=== PATIENT | female | born 1960 | race Caucasian/White ===

== ENCOUNTER 2016-11-29 12:49 | Outpatient (CLI) | payer MEDICARE, MEDICAID ==
[~2016-11-29] VITALS: Ht 157.5 cm; Wt 74.4 kg
[~2016-11-29 12:49] MED LIST: ALBU17AE3 IH; AMIT75TA2 PO; BECL8.7A5 IH; CYCL10TA9 PO; DCS100C PO; DESV50TA PO; ESTR0.5T PO; HYDR-3454 PO; Hydrocodone Bit/Acetaminophen PO; IBUP-1773 PO; LISD70CA3 PO; LISI1TAB10 PO; LISI40TA PO; LVT.088T PO; METH750T3 PO; NAPR-243 PO; NF-ESOM40C PO; PNT40TEC PO; POTA20PI PO; POTA20TA15 PO; SUCR1TAB PO; VILA20TA PO; VILA40TA PO; [UNRECOGNIZED DRUG - OTHER]; flovent
--- OUTSIDE RECORDS SUMMARY | 2016-11-29 12:52 | XMS REPORT | Continuity of Care Document ---
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 If you do not see the information that you expected, contact Release of Information in the Health Information Management department at [phone] for further assistance in locating additional records.[facility] Active Allergies and Adverse Reactions Not on File Current Medications Not on file Active Problems Not on file Social History Tobacco Use Types Packs/Day Years Used Date Never Assessed Plan of Care Health Maintenance Due Date Last Done Comments Physical (Comprehensive) 1966 Exam Pertussis Vaccine 1970 Tetanus Vaccine 1976 Cervical Cancer Screening 1980 Breast Cancer Screening 1999 Colorectal Cancer 2009 Screening Influenza Vaccine 07/08/2016 Results from Last 3 Months Not on file
[2016-11-29] MEDS ORDERED: LIDOCAINE 1% INJ 20 ML (XYLOCAINE) VIAL ONE (12:53)
[2016-11-29] MEDS ORDERED: TRIAMCINOLONE ACET (KENALOG-40) 40 MG/ML 1 ML VIAL ONE (12:53)
[2016-11-29] MEDS ORDERED: BUPIVACAINE 0.25% 30 ML (SENSORCAINE) VIAL ONE (12:53)
[2016-11-29 13:09] VITALS: BP 146/86
[2016-11-29 13:36] VITALS: BP 147/88
--- NOTE | 2016-11-29 14:39 | Pain Medicine-Procedure ---
Procedure Pre-Op/Post-Op Diagnosis Diagnosis: disc disorder with radiculopathy, lumbar Indications for Operation Low back and hip pain Attending Surgeon Duran Procedure Date of Service: Nov 29, 2016 Procedure: Lumbar Epidural Steroid Injection at the L5/S1 Level under Fluoroscopic Guidance and right sacroiliac joint injection Procedure: Patient was identified in the holding area. After risks, benefits, and alternatives were discussed with the patient, informed consent was obtained. Patient was brought to the fluoroscopy suite and placed prone on the procedure room table. A time out was performed. Vital signs were monitored throughout the procedure. The patients low back was prepped and draped in the usual sterile fashion. The patients skin was anesthetized using 2% Lidocaine. A Tuohy needle was inserted and advanced to the L5-S1 epidural space under fluoroscopic guidance using the loss of resistance technique and intermittent projection of fluoroscopy. There was no paresthesia with needle placement. The needle position was confirmed in both the AP and lateral view. After negative aspiration 2ml of non-ionic contrast was injected under live fluoroscopy which showed good spread of the contrast in the epidural space at the appropriate level, there was no intravascular or subarachnoid spread. Again, after negative aspiration for heme or CSF, 2 ml of 0.25% Bupivicaine, 2ml of preservative free normal saline, and 80mg of Kenalog was injected. The needle was removed and a sterile bandage was placed. Attention was then directed to the right sacroiliac joint which was identified under fluoroscopic guidance. The skin overlying the posterior inferior one third of the sacroiliac joint was anesthetized with 1 percent lidocaine and a 22 -gauge 3-1/2 inch needle was inserted and advanced into the joint. Following negative aspiration a total of 40 mg of Kenalog and 2 mL of 0.25 percent bupivacaine was injected. Needle was flushed with lidocaine and removed. Sterile bandage was applied. Patient tolerated the procedures well with no apparent complications. Complications None JUDITH AVENDAÑO MD Nov 29, 2016 2:39 pm
== END 2016-11-29 13:37 | disposition home or self-care (01) ==
LOC: CARD 12:49
PROVIDERS: ATTEND Pain Medicine Pain Medicine
DX: M53.3 Sacrococcygeal disorders, not elsewhere classified (principal); M51.16 Intervertebral disc disorders with radiculopathy, lumbar region; Z79.899 Other long term (current) drug therapy
CPT/HCPCS: 27096; 62323

== ENCOUNTER 2017-03-18 10:18 | Outpatient (CLI) | payer MEDICARE, MEDICAID ==
[~2017-03-18] VITALS: Ht 157.5 cm; Wt 77.1 kg
[2017-03-18] MEDS ORDERED: TRIAMCINOLONE ACET (KENALOG-40) 40 MG/ML 1 ML VIAL ONE (11:13)
[2017-03-18] MEDS ORDERED: BUPIVACAINE 0.25% 30 ML (SENSORCAINE) VIAL ONE (11:14)
[2017-03-18 11:23] VITALS: BP 152/87
[2017-03-18 12:04] VITALS: BP 154/79
--- NOTE | 2017-03-18 13:10 | Pain Medicine-Procedure ---
Procedure Pre-Op/Post-Op Diagnosis Diagnosis: disc disorder with radiculopathy, lumbar Indications for Operation Low back and hip pain Attending Surgeon Duran Procedure Date of Service: March 18, 2017 Procedure: Lumbar Epidural Steroid Injection at the L5/S1 Level under Fluoroscopic Guidance and right sacroiliac joint injection Procedure: Patient was identified in the holding area. After risks, benefits, and alternatives were discussed with the patient, informed consent was obtained. Patient was brought to the fluoroscopy suite and placed prone on the procedure room table. A time out was performed. Vital signs were monitored throughout the procedure. The patients low back was prepped and draped in the usual sterile fashion. The patients skin was anesthetized using 2% Lidocaine. A Tuohy needle was inserted and advanced to the L5-S1 epidural space under fluoroscopic guidance using the loss of resistance technique and intermittent projection of fluoroscopy. There was no paresthesia with needle placement. The needle position was confirmed in both the AP and lateral view. After negative aspiration 2ml of non-ionic contrast was injected under live fluoroscopy which showed good spread of the contrast in the epidural space at the appropriate level, there was no intravascular or subarachnoid spread. Again, after negative aspiration for heme or CSF, 2 ml of 0.25% Bupivicaine, 2ml of preservative free normal saline, and 80mg of Kenalog was injected. The needle was removed and a sterile bandage was placed. Attention was then directed to the right sacroiliac joint which was identified under fluoroscopic guidance. The skin overlying the posterior inferior one third of the sacroiliac joint was anesthetized with 1 percent lidocaine and a 22 -gauge 3-1/2 inch needle was inserted and advanced into the joint. Following negative aspiration a total of 40 mg of Kenalog and 2 mL of 0.25 percent bupivacaine was injected. Needle was flushed with lidocaine and removed. Sterile bandage was applied. Patient tolerated the procedures well with no apparent complications. Complications None JUDITH AVENDAÑO MD March 18, 2017 1:09 pm
== END 2017-03-18 12:06 | disposition home or self-care (01) ==
LOC: CARD 10:18
PROVIDERS: ATTEND Pain Medicine Pain Medicine
DX: M53.3 Sacrococcygeal disorders, not elsewhere classified (principal); M51.16 Intervertebral disc disorders with radiculopathy, lumbar region
CPT/HCPCS: 27096; 62323

== ENCOUNTER → 2017-07-08 | Outpatient (CLI) | payer MEDICARE, MEDICAID ==
--- NOTE | 2017-07-08 13:32 | Diagnostic Imaging Report ---
CLINICAL INDICATION: Patient fell on June 20. Patient has right-sided head pain. EXAM: Axial CT scan of brain performed without IV contrast. COMPARISON: None. FINDINGS: There is no evidence of acute cerebral infarct, intracranial hemorrhage, or gross mass effect. There is normal whaley-white matter distinction. The brain parenchymal volume appears appropriate for patient's age. There is no significant midline shift or herniation. There is a prominent perivascular space in left basal ganglia region. There is no evidence of hydrocephalus. The basal cisterns are unremarkable. The skull, extracranial soft tissue, and orbits are unremarkable. The paranasal sinuses are unremarkable. IMPRESSION: Unremarkable CT scan of the brain. Dictated by: Dictated on workstation # [id number]
== END ==
LOC: RAD 12:29
PROVIDERS: ATTEND Nurse Practitioner Family
DX: R42 Dizziness and giddiness (principal)
CPT/HCPCS: 70450

== ENCOUNTER → 2017-09-01 | Outpatient (CLI) | payer MEDICARE, MEDICAID ==
--- NOTE | 2017-09-01 13:19 | Diagnostic Imaging Report ---
EXAMINATION: DEXA scan. INDICATION: Osteopenia. TECHNIQUE: Bone mineral density estimated based on dual energy radiography over the lumbar spine and femoral necks, was performed. FINDINGS: The lumbar spine T-score is -1. T score over the left femoral neck is 0 and on the right side is -0.5. IMPRESSION: Osteopenia. Dictated by: Dictated on workstation # [id number]
== END ==
LOC: RAD 09:59
PROVIDERS: ATTEND Physician Assistant
DX: M81.0 Age-related osteoporosis without current pathological fracture (principal)
CPT/HCPCS: 77080

== ENCOUNTER → 2017-09-20 | Outpatient (CLI) | payer MEDICARE, MEDICAID ==
[~2017-09-20] MED LIST changes: +GADOBUTROL 7.5 MMOL/7.5 ML (GADAVIST) VIAL IV ONE
--- NOTE | 2017-09-20 14:54 | Diagnostic Imaging Report ---
EXAMINATION: Multiplanar, multisequence MRI of the brain and IACs is performed without and with intravenous contrast. 7 mL of Gadavist is administered intravenously. INDICATION: Dizziness and vertigo. FINDINGS: There is no diffusion restriction to suggest an acute infarct or other diffusion abnormality. There is no significant stafford or white matter signal abnormality. CSF intensity foci in the basal ganglia are likely related to perivascular spaces. Normal findings. There is no hydrocephalus. No extra-axial fluid collection seen. The pituitary gland is normal in size. No hypothalamic or pineal region mass. Thin section images through the IAC demonstrate no CP angle mass. The IACs are symmetric with symmetric appearance of the inner ear structures. The central vascular flow-voids appear grossly unremarkable. Post contrast images demonstrate no enhancing lesion. IMPRESSION: Unremarkable exam. Dictated by: Dictated on workstation # [id number]
== END ==
LOC: RAD 10:03
PROVIDERS: ATTEND Family Medicine
DX: H81.391 Other peripheral vertigo, right ear (principal)
CPT/HCPCS: 70553

== ENCOUNTER 2017-09-27 10:53 | Outpatient (RCR) | payer MEDICARE, MEDICAID ==
[~2017-09-27 10:53] MED LIST changes: -GADOBUTROL 7.5 MMOL/7.5 ML (GADAVIST) VIAL IV ONE
== END 2017-09-27 11:57 | disposition home or self-care (01) ==
PROVIDERS: ATTEND Obstetrics & Gynecology
DX: M62.89 Other specified disorders of muscle (principal); M79.1 Myalgia

== ENCOUNTER 2017-11-16 10:36 | Outpatient (RCR) | payer MEDICARE, MEDICAID | END 2017-11-18 15:26 | disposition home or self-care (01) | PROVIDERS: ATTEND Physician Assistant | DX: R42 Dizziness and giddiness (principal); R26.81 Unsteadiness on feet ==

== ENCOUNTER 2017-12-06 14:36 | Outpatient (RCR) | payer MEDICARE, MEDICAID | END 2017-12-06 15:29 | disposition home or self-care (01) | PROVIDERS: ATTEND Physician Assistant Medical | DX: M25.562 Pain in left knee (principal) ==

== ENCOUNTER → 2017-12-22 | Outpatient (CLI) | payer MEDICAID, MEDICARE ==
--- NOTE | 2017-12-22 12:51 | Diagnostic Imaging Report ---
INDICATION: Routine screening. COMPARISON: Comparison is made with prior exam from 10/26/2016 and 08/07/2015. The current study was also evaluated with a Computer Aided Detection (CAD) system. FINDINGS: Both breasts remain heterogeneously dense, limiting the sensitivity of mammography. The parenchymal pattern is stable. No dominant mass or malignant-appearing microcalcifications are seen. There are scattered benign-appearing calcifications bilaterally. The axillae are unremarkable. IMPRESSION: No mammographic features suspicious for malignancy are identified. ACR BI-RADS Category 2: Benign findings. Result letter will be mailed to the patient. Note: At least 10% of breast cancer is not imaged by mammography. Dictated by: Dictated on workstation # [id number]
== END ==
LOC: RAD 09:31
PROVIDERS: ATTEND Family Medicine
DX: Z12.31 Encounter for screening mammogram for malignant neoplasm of breast (principal)
CPT/HCPCS: 77067

== ENCOUNTER → 2018-05-15 | Outpatient (CLI) | payer MEDICARE, MEDICAID ==
[~2018-05-15] MED LIST changes: +BARIUM SUSPENSION 2.1% (VANILLA SILQ) 450 ML PO ONE; +IOHEXOL 350 MG/ML 100 ML (OMNIPAQUE 350) VIAL IV ONE; +NS 250 ML (IVPB) BAG IV ONE
--- NOTE | 2018-05-15 14:00 | Diagnostic Imaging Report ---
PROCEDURE: CT chest, abdomen, and pelvis with contrast. TECHNIQUE: Multiple contiguous axial images were obtained through the chest, abdomen, and pelvis after the administration of intravenous contrast. INDICATION: Lymphocytosis and abdominal pain. Comparison is made with prior CT abdomen and pelvis from 10/29/2014. CT chest: FINDINGS: No axillary lymphadenopathy is detected. No definite hilar or mediastinal lymphadenopathy is detected. No pericardial or pleural fluid is identified. No pulmonary infiltrates, nodules or masses are seen. IMPRESSION: Unremarkable CT of the chest. CT abdomen and pelvis: FINDINGS: The liver demonstrates generalized low density suggestive of hepatic steatosis. No discrete liver mass is identified. The gallbladder is surgically absent. The pancreas and spleen are unremarkable. No adrenal mass is identified. Kidneys are unremarkable. Aorta is nonaneurysmal. No central retroperitoneal or mesenteric lymphadenopathy is seen. Small and large bowel loops are normal caliber. No obstruction is seen. There is no ascites. No inflammatory process is identified. The bladder is decompressed. Moderate stool in the rectum and sigmoid is seen. IMPRESSION: 1. Hepatic steatosis. 2. No acute feature in the abdomen or pelvis is identified. Dictated by: Dictated on workstation # [id number]
== END ==
LOC: RAD 12:43
PROVIDERS: ATTEND Internal Medicine Hematology & Oncology
DX: K76.0 Fatty (change of) liver, not elsewhere classified (principal); D72.820 Lymphocytosis (symptomatic)
CPT/HCPCS: 71260; 74177

== ENCOUNTER 2018-11-01 12:47 | Outpatient (RCR) | payer MEDICARE, MEDICAID ==
[~2018-11-01 12:47] MED LIST changes: -BARIUM SUSPENSION 2.1% (VANILLA SILQ) 450 ML PO ONE; -IOHEXOL 350 MG/ML 100 ML (OMNIPAQUE 350) VIAL IV ONE; -NS 250 ML (IVPB) BAG IV ONE
== END 2018-11-06 16:22 | disposition home or self-care (01) ==
PROVIDERS: ATTEND Family Medicine
DX: M75.51 Bursitis of right shoulder (principal)

== ENCOUNTER 2018-12-04 12:17 | Outpatient (RCR) | payer MEDICARE, MEDICAID ==
[2018-12-04 13:40] LABS: BASOPHILS # (AUTO) 0.1 10^3/uL (0.0-0.1); BASOPHILS % (AUTO) 1 % (0-10); EOSINOPHILS # (AUTO) 0.3 10^3/uL (0.0-0.3); EOSINOPHILS % (AUTO) 3 % (0-10); HEMATOCRIT 42 % (35-52); HEMOGLOBIN 14.8 G/DL (11.5-16.0); LYMPHOCYTES # (AUTO) 3.4 X 10^3 (1.0-4.0); LYMPHOCYTES % (AUTO) 32 % (12-44); MEAN CORPUSCULAR HEMOGLOBIN 32 PG (25-34); MEAN CORPUSCULAR HGB CONC 35 G/DL (32-36); MEAN CORPUSCULAR VOLUME 90 FL (80-99); MEAN PLATELET VOLUME 10.8 FL (7.4-10.4); MONOCYTES # (AUTO) 0.7 X 10^3 (0.0-1.0); MONOCYTES % (AUTO) 7 % (0-12); NEUTROPHILS % (AUTO) 57 % (42-75); PLATELET COUNT 307 10^3/uL (130-400); RED CELL DISTRIBUTION WIDTH 13.9 % (10.0-14.5); WHITE BLOOD COUNT 10.5 10^3/uL (4.3-11.0)
[2018-12-04 13:55] LABS: ALANINE AMINOTRANSFERASE 17 U/L (0-55); ALBUMIN 3.9 GM/DL (3.2-4.5); ALKALINE PHOSPHATASE 104 U/L (40-136); BILIRUBIN,TOTAL 0.3 MG/DL (0.1-1.0); BUN/CREATININE RATIO 7; CALCIUM 9.4 MG/DL (8.5-10.1); CARBON DIOXIDE 25 MMOL/L (21-32); CHLORIDE 104 MMOL/L (98-107); CREATININE SERUM 0.84 MG/DL (0.60-1.30); GFR ESTIMATED > 60; GLUCOSE 121 MG/DL (70-105); POTASSIUM 2.9 MMOL/L (3.6-5.0); SODIUM 142 MMOL/L (135-145); TOTAL PROTEIN 7.5 GM/DL (6.4-8.2)
== END 2019-03-04 | disposition home or self-care (01) ==
LOC: ONC 12:17
PROVIDERS: ATTEND Internal Medicine Hematology & Oncology
DX: D72.820 Lymphocytosis (symptomatic) (principal); I10 Essential (primary) hypertension; E03.9 Hypothyroidism, unspecified; N28.9 Disorder of kidney and ureter, unspecified; K21.9 Gastro-esophageal reflux disease without esophagitis; K44.9 Diaphragmatic hernia without obstruction or gangrene; K90.0 Celiac disease; M17.0 Bilateral primary osteoarthritis of knee; M47.896 Other spondylosis, lumbar region; Z79.899 Other long term (current) drug therapy
CPT/HCPCS: 80053; 83615; 85025; 99213

== ENCOUNTER 2018-12-08 09:26 | Outpatient (RCR) | payer MEDICARE, MEDICAID | END 2018-12-08 11:08 | disposition home or self-care (01) | PROVIDERS: ATTEND Family Medicine | DX: M75.51 Bursitis of right shoulder (principal) ==

== ENCOUNTER → 2019-01-30 | Outpatient (CLI) | payer MEDICARE, MEDICAID ==
--- NOTE | 2019-01-30 18:02 | Diagnostic Imaging Report ---
INDICATION: Routine screening. Comparison is made with prior mammograms from 12/22/2017 and 10/26/2016. 2-D and 3-D bilateral screening mammography was performed with Computer-Aided Detection (CAD) system. FINDINGS: Both breasts remain heterogeneously dense, limiting the sensitivity of mammography. Benign calcifications are scattered throughout both breasts. No dominant mass or malignant-appearing microcalcifications are seen. Axillae are unremarkable. IMPRESSION: No mammographic features suspicious for malignancy are identified. ACR BI-RADS Category 2: Benign findings. Result letter will be mailed to the patient. Note: At least 10% of breast cancer is not imaged by mammography. Dictated by: Dictated on workstation # [id number]
== END ==
LOC: RAD 12:19
PROVIDERS: ATTEND Family Medicine
DX: Z12.31 Encounter for screening mammogram for malignant neoplasm of breast (principal)
CPT/HCPCS: 77067

== ENCOUNTER → 2019-06-18 | Outpatient (CLI) | payer MEDICARE, MEDICAID ==
[2019-06-18 14:55] LABS: BASOPHILS # (AUTO) 0.1 10^3/uL (0.0-0.1); BASOPHILS % (AUTO) 1 % (0-10); EOSINOPHILS # (AUTO) 0.3 10^3/uL (0.0-0.3); EOSINOPHILS % (AUTO) 3 % (0-10); HEMATOCRIT 40 % (35-52); HEMOGLOBIN 13.9 G/DL (11.5-16.0); LYMPHOCYTES % (AUTO) 38 % (12-44); MEAN CORPUSCULAR HEMOGLOBIN 31 PG (25-34); MEAN CORPUSCULAR HGB CONC 35 G/DL (32-36); MEAN CORPUSCULAR VOLUME 88 FL (80-99); MEAN PLATELET VOLUME 10.8 FL (7.4-10.4); MONOCYTES # (AUTO) 0.8 X 10^3 (0.0-1.0); MONOCYTES % (AUTO) 8 % (0-12); NEUTROPHILS # (AUTO) 5.3 X 10^3 (1.8-7.8); NEUTROPHILS % (AUTO) 51 % (42-75); PLATELET COUNT 241 10^3/uL (130-400); RED CELL DISTRIBUTION WIDTH 14.2 % (10.0-14.5); WHITE BLOOD COUNT 10.4 10^3/uL (4.3-11.0)
[2019-06-18 15:18] LABS: ALANINE AMINOTRANSFERASE 12 U/L (0-55); ALBUMIN 3.8 GM/DL (3.2-4.5); ALKALINE PHOSPHATASE 103 U/L (40-136); BILIRUBIN,TOTAL 0.3 MG/DL (0.1-1.0); BUN/CREATININE RATIO 10; CALCIUM 9.4 MG/DL (8.5-10.1); CARBON DIOXIDE 27 MMOL/L (21-32); CHLORIDE 102 MMOL/L (98-107); CREATININE SERUM 0.92 MG/DL (0.60-1.30); GFR ESTIMATED > 60; GLUCOSE 88 MG/DL (70-105); POTASSIUM 2.9 MMOL/L (3.6-5.0); SODIUM 140 MMOL/L (135-145); TOTAL PROTEIN 7.2 GM/DL (6.4-8.2)
== END ==
LOC: EDSTATUS 03-05 09:00 → ONC 14:29
PROVIDERS: ATTEND Internal Medicine Hematology & Oncology
DX: D72.820 Lymphocytosis (symptomatic) (principal); I10 Essential (primary) hypertension; E03.9 Hypothyroidism, unspecified; N28.9 Disorder of kidney and ureter, unspecified; K21.9 Gastro-esophageal reflux disease without esophagitis; K44.9 Diaphragmatic hernia without obstruction or gangrene; K90.0 Celiac disease; M17.0 Bilateral primary osteoarthritis of knee; M47.896 Other spondylosis, lumbar region; Z79.899 Other long term (current) drug therapy
CPT/HCPCS: 36415; 80053; 83615; 85025; 99213

== ENCOUNTER 2019-12-10 15:20 | Outpatient (RCR) | payer MEDICARE, MEDICAID | END 2019-12-12 | disposition home or self-care (01) | PROVIDERS: ATTEND Nurse Practitioner | DX: M51.16 Intervertebral disc disorders with radiculopathy, lumbar region (principal); M25.562 Pain in left knee ==

== ENCOUNTER 2020-01-10 11:00 | Outpatient (RCR) | payer MEDICARE, MEDICAID | END 2020-01-29 15:51 | disposition home or self-care (01) | PROVIDERS: ATTEND Nurse Practitioner | DX: M51.16 Intervertebral disc disorders with radiculopathy, lumbar region (principal); M25.562 Pain in left knee ==

== ENCOUNTER → 2020-01-16 | Outpatient (CLI) | payer MEDICARE, MEDICAID ==
--- NOTE | 2020-01-16 13:07 | Diagnostic Imaging Report ---
PROCEDURE: MRI left joint lower extremity without contrast. TECHNIQUE: Multiplanar, multisequence non contrast-enhanced MRI of the left lower extremity was accomplished. INDICATION: Chronic knee pain. COMPARISON: There are no prior MRI examinations available for comparison. FINDINGS: The plain film examination of the left knee performed on 10/20/2015 noted mild degenerative changes involving the articular surface of the lateral femoral condyle. There is no acute bony abnormality appreciated. On the proton dense fat saturated series of this exam, the midportion of the medial meniscus is thinned and most likely torn on a degenerative basis. There also appears to be a tear involving the junction of the midportion and the anterior horn. There may be a small tear involving the inferior articular surface of the posterior horn of the medial meniscus as well. Furthermore the injury to the medial meniscus has led to moderately severe degenerative disease involving the medial compartment of the knee joint. The articular surface of the medial femoral condyle is thinned and there are opposing osteophytes along the medial femoral condyle and medial proximal tibia. There is also increased signal in the subarticular region of the medial aspect of the proximal tibia on the coronal STIR series and to a lesser degree within the medial femoral condyle itself. This may represent bone edema from repetitive trauma. Furthermore, there is edema/inflammation about the medial collateral ligament. The MCL itself appears to be intact. The lateral meniscus is intact. There is only moderate degenerative disease involving the articular surface of the lateral femoral condyle. The patellofemoral space is fairly well-maintained. There is no evidence for chondromalacia patella. The anterior and posterior cruciate ligaments, the quadriceps and infrapatellar tendon, the fibular collateral ligament, the biceps femoris tendon and the iliotibial band are intact. There is no abnormal signal arising from the osseous structures to indicate bone edema related to a fracture. There is a moderate joint effusion present. There is no sign of a Esqueda's cyst. IMPRESSION: 1. The medial meniscus is torn. The injury to the medial meniscus has led to moderately severe degenerative disease of the medial compartment of the knee joint. There is also edema/inflammation about the medial collateral ligament although the MCL itself seems to be intact. 2. The lateral meniscus is intact. 3. The other major ligaments and tendons show no sign of an acute injury. 4. There is moderate degenerative disease of the lateral compartment of the knee joint and mild degenerative disease of the patellofemoral space. There is no acute bony abnormality noted. 5. There is a small to moderate joint effusion. Dictated by: Dictated on workstation # [id number]
== END ==
LOC: RAD 11:48
PROVIDERS: ATTEND Family Medicine
DX: S83.242A Other tear of medial meniscus, current injury, left knee, initial encounter (principal); M17.12 Unilateral primary osteoarthritis, left knee; M25.462 Effusion, left knee; X58.XXXA Exposure to other specified factors, initial encounter
CPT/HCPCS: 73721

== ENCOUNTER → 2020-03-19 | Outpatient (CLI) | payer MEDICARE, MEDICAID ==
--- NOTE | 2020-03-19 12:27 | Diagnostic Imaging Report ---
INDICATION: Routine screening. Comparison is made with prior mammogram from 01/30/2019 and 12/22/2017. Both breasts remain heterogeneously dense, limiting the sensitivity of mammography. There are benign calcifications scattered throughout both breasts. No dominant mass or malignant appearing microcalcifications are seen. Axillae are unremarkable. IMPRESSION: BI-RADS Category 2 No mammographic features suspicious for malignancy are identified. Dictated by: Dictated on workstation # [id number]
== END ==
LOC: RAD 09:28
PROVIDERS: ATTEND Family Medicine
DX: Z12.31 Encounter for screening mammogram for malignant neoplasm of breast (principal)
CPT/HCPCS: 77063; 77067

== ENCOUNTER → 2020-04-11 | Outpatient (CLI) | payer MEDICARE, MEDICAID | LOC: LABNPT 09:03 | PROVIDERS: ATTEND Internal Medicine Gastroenterology | DX: Z01.812 Encounter for preprocedural laboratory examination (principal); Z20.828 Contact with and (suspected) exposure to other viral communicable diseases ==

== ENCOUNTER → 2020-04-25 | Outpatient (CLI) | payer MEDICARE, MEDICAID ==
[~2020-04-25] MED LIST changes: +CATHETER FLUSH 10 ML SYR IV PRN; +HOLD METFORMIN - RECEIVED CONTRAST 20 ML VIAL IV SCH; +IOHEXOL 350 MG/ML 100 ML (OMNIPAQUE 350) VIAL IV ONE; +NS 100 ML (IVPB) BAG IV ONE
[2020-04-25 11:00] LABS: ALBUMIN 4.1 GM/DL (3.2-4.5); CHLORIDE 105 MMOL/L (98-107); POTASSIUM 3.4 MMOL/L (3.6-5.0); SODIUM 138 MMOL/L (135-145)
[2020-04-25 11:01] LABS: CALCIUM 9.5 MG/DL (8.5-10.1)
[2020-04-25 11:02] LABS: GLUCOSE 82 MG/DL (70-105); TOTAL PROTEIN 7.7 GM/DL (6.4-8.2)
[2020-04-25 11:03] LABS: CARBON DIOXIDE 23 MMOL/L (21-32)
[2020-04-25 11:04] LABS: BILIRUBIN,TOTAL 0.4 MG/DL (0.1-1.0)
[2020-04-25 11:06] LABS: ALKALINE PHOSPHATASE 100 U/L (40-136); CREATININE SERUM 0.81 MG/DL (0.60-1.30); GFR ESTIMATED > 60
[2020-04-25 11:07] LABS: BUN/CREATININE RATIO 6
[2020-04-25 11:09] LABS: ALANINE AMINOTRANSFERASE 11 U/L (0-55)
--- NOTE | 2020-04-25 12:29 | Diagnostic Imaging Report ---
CLINICAL INDICATION: Patient with dizziness and constant headaches. Patient has migraine headaches but these headaches are different. Patient has family history of brain aneurysms. EXAMS: 1: Head CT with and without IV contrast. Auto Exposure Controls were utilized during the CT exam to meet ALARA standards for radiation dose reduction. 2: CT angiogram of the head performed with 75 cc of Omnipaque 350 IV contrast. Sagittal and coronal MIP reformations were created for better visualization of vascular anatomy. COMPARISON: Head CT without contrast dated 07/08/2017. FINDINGS: HEAD CT: There is no evidence of acute cerebral infarct, intracranial hemorrhage, or gross mass effect. There is no abnormal IV contrast enhancement. The brain parenchymal volume appears appropriate for patient's age. Likely prominent perivascular space in the left basal ganglia region. There is normal whaley-white matter distinction. There is no significant midline shift or herniation. There is no evidence of hydrocephalus. The basal cisterns are unremarkable. The skull, extracranial soft tissue, and orbits are unremarkable. There is mild mucosal thickening within the sphenoid sinus. Temporal bones show no significant abnormality. CT ANGIOGRAM: There is a saccular aneurysm arising from the posterior aspect of the supraclinoid left ICA which measures 4 mm x 3 mm in greatest axial dimension and roughly 2 mm deep. The neck of the aneurysm is roughly 2.6 mm wide. This aneurysm is directed inferiorly and posteriorly. There is no definite vessel extending from this aneurysm. There is no other aneurysm seen on this exam. There is no vascular malformation, dissection, or significant stenosis seen. The ASHLEY, MCAs, and medical territory manager and their distal branches are patent. The basilar artery, superior cerebellar artery, and intradural vertebral arteries are patent. Right AICA-PICA and left PICA are patent. The dural venous sinuses are patent. 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 2: The remainder of the [place] of [place] is unremarkable. Dural venous sinuses are patent. 3: Unremarkable CT scan of the brain. Dictated by: Dictated on workstation # [id number]
== END ==
LOC: RAD 10:21
PROVIDERS: ATTEND Family Medicine
DX: S09.90XA Unspecified injury of head, initial encounter (principal); I67.1 Cerebral aneurysm, nonruptured; Z82.49 Family history of ischemic heart disease and other diseases of the circulatory system
CPT/HCPCS: 36415; 70496; 80053

== ENCOUNTER 2020-05-15 13:22 | Outpatient (RCR) | payer MEDICARE, MEDICAID ==
[~2020-05-15 13:22] MED LIST changes: -CATHETER FLUSH 10 ML SYR IV PRN; -HOLD METFORMIN - RECEIVED CONTRAST 20 ML VIAL IV SCH; -IOHEXOL 350 MG/ML 100 ML (OMNIPAQUE 350) VIAL IV ONE; -NS 100 ML (IVPB) BAG IV ONE
== END 2020-05-15 15:20 | disposition home or self-care (01) ==
PROVIDERS: ATTEND Orthopaedic Surgery
DX: M25.562 Pain in left knee (principal); Z98.890 Other specified postprocedural states

== ENCOUNTER 2020-09-05 15:47 | Outpatient (RCR) | payer MEDICARE, MEDICAID | END 2020-10-15 09:35 | disposition home or self-care (01) | PROVIDERS: ATTEND Physician Assistant Medical | DX: M54.12 Radiculopathy, cervical region (principal); R49.0 Dysphonia; K21.9 Gastro-esophageal reflux disease without esophagitis; G43.909 Migraine, unspecified, not intractable, without status migrainosus; R03.0 Elevated blood-pressure reading, without diagnosis of hypertension; J45.909 Unspecified asthma, uncomplicated; M19.90 Unspecified osteoarthritis, unspecified site; F32.9 Major depressive disorder, single episode, unspecified; Z90.710 Acquired absence of both cervix and uterus; Z90.722 Acquired absence of ovaries, bilateral; Z98.890 Other specified postprocedural states; Z87.19 Personal history of other diseases of the digestive system ==

== ENCOUNTER → 2020-09-23 | Outpatient (CLI) | payer MEDICARE, MEDICAID ==
[~2020-09-23] MED LIST changes: +CATHETER FLUSH 10 ML SYR IV PRN; +HOLD METFORMIN - RECEIVED CONTRAST 20 ML VIAL IV SCH; +IOHEXOL 350 MG/ML 100 ML (OMNIPAQUE 350) VIAL IV ONE; +NS 100 ML (IVPB) BAG IV ONE
[2020-09-23 15:19] LABS: ALBUMIN 4.3 GM/DL (3.2-4.5); CHLORIDE 103 MMOL/L (98-107); SODIUM 138 MMOL/L (135-145)
[2020-09-23 15:20] LABS: CALCIUM 9.1 MG/DL (8.5-10.1)
[2020-09-23 15:21] LABS: GLUCOSE 100 MG/DL (70-105); TOTAL PROTEIN 7.9 GM/DL (6.4-8.2)
[2020-09-23 15:22] LABS: CARBON DIOXIDE 22 MMOL/L (21-32)
[2020-09-23 15:23] LABS: BILIRUBIN,TOTAL 0.9 MG/DL (0.1-1.0)
[2020-09-23 15:25] LABS: ALKALINE PHOSPHATASE 75 U/L (40-136); CREATININE SERUM 0.92 MG/DL (0.60-1.30); GFR ESTIMATED > 60
[2020-09-23 15:26] LABS: BUN/CREATININE RATIO 11
[2020-09-23 15:28] LABS: ALANINE AMINOTRANSFERASE 13 U/L (0-55)
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
== END ==
LOC: RAD 15:45
PROVIDERS: ATTEND Nurse Practitioner Family
DX: K76.0 Fatty (change of) liver, not elsewhere classified (principal); E78.5 Hyperlipidemia, unspecified; I10 Essential (primary) hypertension
CPT/HCPCS: 36415; 74177; 80053

== ENCOUNTER → 2020-10-22 | Outpatient (CLI) | payer MEDICARE, MEDICAID ==
--- NOTE | 2020-10-22 12:55 | Diagnostic Imaging Report ---
PROCEDURE: CT angiography of the head with and without contrast. TECHNIQUE: Noncontrast CT of the head was obtained. Subsequently, after intravenous administration of contrast, thin section axial CT angiography of the head was performed. Source data was reformatted into multiple MIP reformats. Delayed postcontrast acquisition of the head was also acquired. Auto Exposure Controls were utilized during the CT exam to meet ALARA standards for radiation dose reduction. INDICATION: Intracranial aneurysm. Headaches. Blurred vision. COMPARISON: CTA head without and with IV contrast 04/25/2020. FINDINGS: Noncontrast head CT demonstrates no intracranial hemorrhage, mass effect, hydrocephalus or extra-axial fluid collection. No CT evidence of a territorial infarction. No abnormal intracranial enhancement on delayed postcontrast imaging. 0.3 x 0.2 saccular aneurysm projecting posteriorly and inferiorly from the left supraclinoid ICA. No other intracranial aneurysm. No high-grade narrowing or dissection involving major intracranial arteries. Normal opacification of the dural venous sinuses. IMPRESSION: 1. No acute intra-axial CT findings. 2. Stable 0.3 x 0.2 cm saccular aneurysm projecting posteriorly and inferiorly from the left supraclinoid ICA. Dictated by: Dictated on workstation # [id number]
== END ==
LOC: RAD 12:45
PROVIDERS: ATTEND Psychiatry & Neurology Neurology
DX: I67.1 Cerebral aneurysm, nonruptured (principal)
CPT/HCPCS: 70496

== ENCOUNTER → 2020-12-03 | Outpatient (CLI) | payer MEDICARE, MEDICAID ==
[~2020-12-03] MED LIST changes: -CATHETER FLUSH 10 ML SYR IV PRN; -HOLD METFORMIN - RECEIVED CONTRAST 20 ML VIAL IV SCH; -IOHEXOL 350 MG/ML 100 ML (OMNIPAQUE 350) VIAL IV ONE; -NS 100 ML (IVPB) BAG IV ONE
== END ==
LOC: LABNPT 05:49
PROVIDERS: ATTEND Orthopaedic Surgery
DX: Z53.9 Procedure and treatment not carried out, unspecified reason (principal)

== ENCOUNTER → 2021-01-05 | Outpatient (CLI) | payer MEDICARE, MEDICAID ==
--- NOTE | 2021-01-05 16:13 | Diagnostic Imaging Report ---
INDICATION: Peripheral vascular disease EXAM: Ankle-brachial indices. FINDINGS: Pressures were recorded in the brachial arteries and in the dorsalis pedis and posterior tibial arteries of the ankle. The ankle brachial index on the right is 0.93. On the left is 0.8. IMPRESSION: Reduced ankle brachial index on the left consistent with a hemodynamically significant stenosis. Dictated by: Dictated on workstation # [id number]
== END ==
LOC: RAD 13:00
PROVIDERS: ATTEND Family Medicine
DX: I70.293 Other atherosclerosis of native arteries of extremities, bilateral legs (principal)
CPT/HCPCS: 93922

== ENCOUNTER → 2021-01-14 | Outpatient (CLI) | payer MEDICARE, MEDICAID ==
[~2021-01-14] VITALS: Ht 157 cm; Wt 66.0 kg
[~2021-01-14] MED LIST changes: +CATHETER FLUSH 10 ML SYR IV PRN; +REGADENOSON 0.4 MG/5 ML SYR (LEXISCAN) IV ONE
[2021-01-14 13:15] VITALS: BP 139/82
--- NOTE | 2021-01-14 14:54 | Cardiology Stress Test Report ---
Stress Test Report Date of Procedure/Referring: Date of Procedure: Jan 14, 2021 PCP Zainab Palomino MD Admitting Physician No,Local Physician Indications: HTN Baseline Heart Rate: 61 Baseline Blood Pressure: Blood Pressure Systolic: 139 Blood Pressure Diastolic: 82 Baseline Vitals Vital Signs Date Time Temp Pulse Resp B/P (MAP) Pulse Ox O2 Delivery O2 Flow Rate FiO2 01/14/21 13:15 68 18 139/82 (101) 98 Room Air Baseline EKG: Baseline EKG: NSR Summary After explaining the procedure to the patient, she signed a consent and then brought to the stress nuclear laboratory. Patient received 0.4 mg Lexiscan for stress test, ECG, heart rate and blood pressure were monitored continuously. Resting and stress dose of radio tracer were injected, imaging was acquired and reviewed in short axis, horizontal long axis and vertical long axis views. TID: 0.99 SSS: 1 SDS: 1 EF: 73 1. Patient tolerated Lexiscan well 2. No significant ischemia or infarction on SPECT images 3. Normal LV size, EF 73 percent ZAINAB PALOMINO MD Jan 14, 2021 14:54
== END ==
LOC: CARD 11:09
PROVIDERS: ATTEND Internal Medicine Cardiovascular Disease
DX: I10 Essential (primary) hypertension (principal); R07.9 Chest pain, unspecified
CPT/HCPCS: 78452; 93017; A9502

== ENCOUNTER → 2021-01-16 | Outpatient (CLI) | payer MEDICARE, MEDICAID ==
[~2021-01-16] MED LIST changes: -CATHETER FLUSH 10 ML SYR IV PRN; -REGADENOSON 0.4 MG/5 ML SYR (LEXISCAN) IV ONE
--- NOTE | 2021-01-16 12:46 | Diagnostic Imaging Report ---
PROCEDURE: MRI lumbar spine. TECHNIQUE: Multiplanar, multisequence MRI of the lumbar spine was performed without contrast. INDICATION: Lumbar radiculopathy. COMPARISON: None. FINDINGS: Normal alignment. Vertebral body heights are preserved. Modic type I degenerative endplate changes at L4-L5. No abnormal signal in the conus which terminates at L1-L2. Normal morphology of the cauda equina. Visualized pelvis and paravertebral soft tissues are unremarkable. L1-L2: No spinal canal, lateral recess or neural foraminal narrowing. L2-L3: No spinal canal, lateral recess or neural foraminal narrowing. L3-L4: Right paracentral disc protrusion compresses the traversing right L4 nerve root. There is also mild bilateral neural foraminal narrowing. No substantial spinal canal narrowing. L4-L5: Annular disc bulge results in moderate narrowing of the lateral recesses bilaterally. Mild spinal canal narrowing. Moderate right and mild left neural foraminal narrowing. L5-S1: No spinal canal or lateral recess narrowing. No substantial neural foraminal narrowing. IMPRESSION: 1. Right paracentral disc protrusion at L3-L4 compresses the traversing right L4 nerve root. 2. No high-grade spinal canal stenosis. Dictated by: Dictated on workstation # [id number]
== END ==
LOC: RAD 11:01
PROVIDERS: ATTEND Physician Assistant
DX: M51.16 Intervertebral disc disorders with radiculopathy, lumbar region (principal); M48.061 Spinal stenosis, lumbar region without neurogenic claudication
CPT/HCPCS: 72148

== ENCOUNTER → 2021-01-16 | Outpatient (CLI) | payer MEDICARE, MEDICAID | LOC: CARD 11:03 | PROVIDERS: ATTEND Internal Medicine Cardiovascular Disease | DX: I10 Essential (primary) hypertension (principal); R07.9 Chest pain, unspecified | CPT/HCPCS: 93306 ==

== ENCOUNTER 2021-02-09 15:00 | Outpatient (RCR) | payer MEDICARE, MEDICAID | END 2021-05-10 | disposition home or self-care (01) | LOC: CARD 15:00 | PROVIDERS: ATTEND Physician Assistant | DX: R00.2 Palpitations (principal) | CPT/HCPCS: 93225; 93226 ==

== ENCOUNTER → 2021-03-20 | Outpatient (CLI) | payer MEDICARE, MEDICAID ==
--- NOTE | 2021-03-23 08:58 | Diagnostic Imaging Report ---
INDICATION: Routine screening. Comparison is made with prior mammogram 03/19/2020 and 01/30/2019. 2-D and 3-D bilateral screening mammography was performed with CAD. Both breasts are heterogeneously dense, limiting the sensitivity of mammography. There are scattered benign calcifications in both breasts. There is a cluster of microcalcifications in the outer aspect of the left breast posterior depth best seen on the CC view. These appear to be increasing slightly in number compared with prior exam and are indeterminant. Additional views with magnification views and ML views are recommended. No mass is identified. Axillae are unremarkable. IMPRESSION: BI-RADS 0 Left breast calcifications. Additional views recommended for further evaluation. ACR BI-RADS Category 0: Incomplete. (Needs additional imaging evaluation). Result letter will be mailed to the patient. Note: At least 10% of breast cancer is not imaged by mammography. Dictated by: Dictated on workstation # [id number]
== END ==
LOC: RAD 14:07
PROVIDERS: ATTEND Obstetrics & Gynecology
DX: Z12.31 Encounter for screening mammogram for malignant neoplasm of breast (principal)
CPT/HCPCS: 77063; 77067

== ENCOUNTER 2021-04-01 13:42 | Outpatient (RCR) | payer MEDICARE, MEDICAID | END 2021-04-23 10:21 | disposition home or self-care (01) | PROVIDERS: ATTEND Orthopaedic Surgery | DX: M54.2 Cervicalgia (principal); R51.9 Headache, unspecified; R29.898 Other symptoms and signs involving the musculoskeletal system | CPT/HCPCS: 97163; G0283 ==

== ENCOUNTER → 2021-04-03 | Outpatient (CLI) | payer MEDICARE, MEDICAID ==
[~2021-04-03] MED LIST changes: +CATHETER FLUSH 10 ML SYR IV PRN; +HOLD METFORMIN - RECEIVED CONTRAST 20 ML VIAL IV SCH; +IOHEXOL 350 MG/ML 100 ML (OMNIPAQUE 350) VIAL IV ONE; +NS 100 ML (IVPB) BAG IV ONE
[2021-04-03 12:13] LABS: ALANINE AMINOTRANSFERASE 9 U/L (0-55); ALKALINE PHOSPHATASE 93 U/L (40-136); BILIRUBIN,TOTAL 0.3 MG/DL (0.1-1.0); BUN/CREATININE RATIO 10; CALCIUM 9.6 MG/DL (8.5-10.1); CARBON DIOXIDE 28 MMOL/L (21-32); CHLORIDE 104 MMOL/L (98-107); CREATININE SERUM 0.84 MG/DL (0.60-1.30); GFR ESTIMATED > 60; GLUCOSE 77 MG/DL (70-105); POTASSIUM 3.5 MMOL/L (3.6-5.0); SODIUM 138 MMOL/L (135-145); TOTAL PROTEIN 7.6 GM/DL (6.4-8.2)
--- NOTE | 2021-04-03 13:14 | Diagnostic Imaging Report ---
EXAMINATION: CT abdomen and pelvis with and without intravenous contrast. TECHNIQUE: Precontrast acquisitions were acquired through the abdomen and pelvis. Multiple contiguous axial images were obtained through the abdomen and pelvis after the administration of intravenous contrast. All CT scans use one or more of the following dose optimizing techniques: automated exposure control, MA and/or KvP adjustment based on patient size and exam type or iterative reconstruction. HISTORY: HEMATURIA. COMPARISON: CT abdomen and pelvis 09/23/2020. FINDINGS: Lung bases: Bibasilar dependent atelectasis. Solid organs: The liver is normal without focal lesion. The gallbladder is surgically absent. There is no biliary ductal dilation. Pancreas is normal. Spleen is normal. Adrenal glands are normal. The kidneys are normal without visualized calculus or hydronephrosis. No suspicious enhancing renal lesion. The ureters are normal in caliber without obvious filling defect. Ureters are patent to the ureterovesicular junction. Bowel: The stomach and small bowel are normal without obstruction. There is scattered colonic diverticulosis. The appendix is normal. Peritoneum: There is no intraperitoneal free fluid or free air. No suspicious lymphadenopathy. Vasculature: Calcification of the aorta without aneurysm. Musculoskeletal: Degenerative changes of the spine without suspicious osseous lesion or compression fracture. Pelvis: The uterus is surgically absent. No adnexal mass. The urinary bladder is normal. IMPRESSION: 1. Unremarkable appearance of the kidneys, ureters, and urinary bladder. No renal calculus, hydronephrosis, or suspicious enhancing lesion. 2. Colonic diverticulosis without findings of diverticulitis. Dictated by: Dictated on workstation # [id number]
== END ==
LOC: RAD 12:45
PROVIDERS: ATTEND Family Medicine
DX: R31.9 Hematuria, unspecified (principal); K57.30 Diverticulosis of large intestine without perforation or abscess without bleeding
CPT/HCPCS: 36415; 74178; 80053

== ENCOUNTER → 2021-04-09 | Outpatient (CLI) | payer MEDICARE, MEDICAID ==
[~2021-04-09] MED LIST changes: -CATHETER FLUSH 10 ML SYR IV PRN; -HOLD METFORMIN - RECEIVED CONTRAST 20 ML VIAL IV SCH; -IOHEXOL 350 MG/ML 100 ML (OMNIPAQUE 350) VIAL IV ONE; -NS 100 ML (IVPB) BAG IV ONE
--- NOTE | 2021-04-09 13:47 | Diagnostic Imaging Report ---
INDICATION: Left breast calcifications. Patient presents for additional views. Correlation is made with screening study from 03/20/2021 as well as prior exams dating back to 2016. Unilateral left 2-D and 3-D diagnostic mammography was performed with CAD. This includes magnification CC and ML views as well as conventional 90 degrees lateral views. Additional views show a cluster in the lateral aspect of the left breast posterior depth. These appear to be at the nipple line on the MLO view. These are indeterminate. No associated soft tissue mass is identified. IMPRESSION: BI-RADS Category 4 Indeterminate cluster micro-calcifications in the lateral left breast posterior depth. Tissue sampling is recommended. These would be amenable to stereotactic biopsy. ACR BI-RADS Category 4: Suspicious abnormality. Result letter will be mailed to the patient. Note: At least 10% of breast cancer is not imaged by mammography. Dictated by: Dictated on workstation # [id number]
== END ==
LOC: RAD 12:45
PROVIDERS: ATTEND Obstetrics & Gynecology
DX: R92.1 Mammographic calcification found on diagnostic imaging of breast (principal)
CPT/HCPCS: 77065; G0279

== ENCOUNTER → 2021-05-07 | Outpatient (CLI) | payer MEDICARE, MEDICAID ==
[~2021-05-07] VITALS: Ht 157.5 cm; Wt 65.9 kg
[~2021-05-07] MED LIST changes: +LIDOCAINE 1% INJ 20 ML 20 ML VIAL INJ ONE
--- NOTE | 2021-05-07 11:16 | Diagnostic Imaging Report ---
Indication: Left breast calcification. Patient presents for stereotactic biopsy. Patient brought to [facility] internal sitting upright position. Left breast was positioned lateral medial. The cluster of microcalcifications in the outer left breast posterior depth were stereotactically targeted. Lateral left breast was then prepped and draped usual sterile fashion. Small amount 1% lidocaine was utilized for local anesthesia. A 8 gauge needle was advanced into the left breast from a lateral medial approach and placed with its tip or stricture tactic coordinates. Total of 4 core biopsies were obtained with a vacuum-assisted device. All images were viewed on dedicated workstation. Specimen radiograph was obtained and demonstrates a cluster microcalcifications within sample labeled #1. There are multiple calcific effusions and a sample #2 as well. A marker clip was then deployed. Needle was removed and hemostasis was obtained using manual compression. Follow-up 2-D CC and LM mammography was performed to evaluate clip placement. There is a clip located in the posterior and lateral left breast at the previous site of microcalcifications. Moderate amount of subcutaneous soft tissue gas is noted. IMPRESSION: Successful stereotactic biopsy of left breast calcifications utilizing the vacuum assisted device. Pathology results are currently pending. Dictated by: Dictated on workstation # [id number]
== END ==
LOC: RAD 09:35
PROVIDERS: ATTEND Obstetrics & Gynecology
DX: R92.1 Mammographic calcification found on diagnostic imaging of breast (principal)
CPT/HCPCS: 19081; A4648

== ENCOUNTER → 2021-06-16 | Outpatient (CLI) | payer MEDICARE, MEDICAID ==
[~2021-06-16] MED LIST changes: -LIDOCAINE 1% INJ 20 ML 20 ML VIAL INJ ONE
[2021-06-16 13:11] LABS: BASOPHILS # (AUTO) 0.1 10^3/uL (0.0-0.1); BASOPHILS % (AUTO) 1 % (0-10); EOSINOPHILS # (AUTO) 0.1 10^3/uL (0.0-0.3); EOSINOPHILS % (AUTO) 1 % (0-10); HEMATOCRIT 42 % (35-52); HEMOGLOBIN 14.1 g/dL (11.5-16.0); LYMPHOCYTES # (AUTO) 4.9 10^3/uL (1.0-4.0); LYMPHOCYTES % (AUTO) 31 % (12-44); MEAN CORPUSCULAR HEMOGLOBIN 32 pg (25-34); MEAN CORPUSCULAR HGB CONC 34 g/dL (32-36); MEAN CORPUSCULAR VOLUME 94 fL (80-99); MEAN PLATELET VOLUME 9.9 fL (9.0-12.2); MONOCYTES # (AUTO) 1.1 10^3/uL (0.0-1.0); MONOCYTES % (AUTO) 7 % (0-12); NEUTROPHILS # (AUTO) 8.9 10^3/uL (1.8-7.8); NEUTROPHILS % (AUTO) 58 % (42-75); PLATELET COUNT 295 10^3/uL (130-400); WHITE BLOOD COUNT 15.5 10^3/uL (4.3-11.0)
[2021-06-16 13:28] LABS: ALBUMIN 4.1 GM/DL (3.2-4.5); BILIRUBIN,TOTAL 0.6 MG/DL (0.1-1.0); CALCIUM 9.6 MG/DL (8.5-10.1); CREATININE SERUM 0.9 MG/DL (0.60-1.30); POTASSIUM 4.1 MMOL/L (3.6-5.0); TOTAL PROTEIN 7.9 GM/DL (6.4-8.2)
== END ==
LOC: ONC 12:52
PROVIDERS: ATTEND Internal Medicine Hematology & Oncology
DX: D72.820 Lymphocytosis (symptomatic) (principal); D80.2 Selective deficiency of immunoglobulin A [IgA]; J45.909 Unspecified asthma, uncomplicated; I10 Essential (primary) hypertension; F32.9 Major depressive disorder, single episode, unspecified; E66.01 Morbid (severe) obesity due to excess calories
CPT/HCPCS: 80053; 83615; 85025; G0463; 99213

== ENCOUNTER 2022-03-05 13:07 | Outpatient (RCR) | payer MEDICARE, MEDICAID | END 2022-03-06 | disposition home or self-care (01) | PROVIDERS: ATTEND Physician Assistant | DX: Z47.1 Aftercare following joint replacement surgery (principal); I10 Essential (primary) hypertension; J45.909 Unspecified asthma, uncomplicated; Z96.652 Presence of left artificial knee joint ==

== ENCOUNTER → 2022-04-06 | Outpatient (RCR) | payer MEDICARE, MEDICAID | END | disposition home or self-care (01) | PROVIDERS: ATTEND Physician Assistant | DX: Z47.1 Aftercare following joint replacement surgery (principal); I10 Essential (primary) hypertension; J45.909 Unspecified asthma, uncomplicated; Z96.652 Presence of left artificial knee joint ==

== ENCOUNTER 2022-04-12 13:20 | Outpatient (RCR) | payer MEDICARE, MEDICAID | END 2022-05-06 | disposition home or self-care (01) | PROVIDERS: ATTEND Physician Assistant | DX: Z47.1 Aftercare following joint replacement surgery (principal); I10 Essential (primary) hypertension; J45.909 Unspecified asthma, uncomplicated; Z96.652 Presence of left artificial knee joint ==

== ENCOUNTER → 2022-10-06 | Outpatient (CLI) | payer MEDICARE, MEDICAID ==
[2022-10-06 12:16] LABS: BASOPHILS # (AUTO) 0.1 10^3/uL (0.0-0.1); BASOPHILS % (AUTO) 1 % (0-10); EOSINOPHILS # (AUTO) 0.2 10^3/uL (0.0-0.3); EOSINOPHILS % (AUTO) 2 % (0-10); HEMATOCRIT 37 % (35-52); HEMOGLOBIN 12.8 g/dL (11.5-16.0); LYMPHOCYTES # (AUTO) 3.5 10^3/uL (1.0-4.0); LYMPHOCYTES % (AUTO) 39 % (12-44); MEAN CORPUSCULAR HEMOGLOBIN 33 pg (25-34); MEAN CORPUSCULAR HGB CONC 35 g/dL (32-36); MEAN CORPUSCULAR VOLUME 94 fL (80-99); MEAN PLATELET VOLUME 10.3 fL (9.0-12.2); MONOCYTES # (AUTO) 0.6 10^3/uL (0.0-1.0); MONOCYTES % (AUTO) 7 % (0-12); NEUTROPHILS # (AUTO) 4.5 10^3/uL (1.8-7.8); NEUTROPHILS % (AUTO) 50 % (42-75); PLATELET COUNT 284 10^3/uL (130-400); WHITE BLOOD COUNT 9.1 10^3/uL (4.3-11.0)
[2022-10-06 12:39] LABS: BILIRUBIN,TOTAL 0.3 MG/DL (0.1-1.0); CALCIUM 9.1 MG/DL (8.5-10.1); CREATININE SERUM 0.84 MG/DL (0.60-1.30); POTASSIUM 3.8 MMOL/L (3.6-5.0); TOTAL PROTEIN 7.4 GM/DL (6.4-8.2)
== END ==
LOC: CARD 10:42
PROVIDERS: ATTEND Internal Medicine Cardiovascular Disease
DX: I11.9 Hypertensive heart disease without heart failure (principal)
CPT/HCPCS: 80053; 80061; 83036; 84443; 85025; C8929; 36415; 93306